=== PATIENT | female | born 1970 | race Caucasian/White ===

== ENCOUNTER 2017-11-04 11:25 | Inpatient (IN) ==
[2017-11-04] MEDS ORDERED: Metoclopramide 10 MG/2 ML VIAL IVP ONE (11:45)
[2017-11-04] MEDS ORDERED: Scopolamine Patch 1.5 MG PATCH.TD72 TD ONE (11:45)
[2017-11-04] MEDS ORDERED: Famotidine 20 MG/2 ML VIAL IVP ONE (11:45)
[2017-11-04] MEDS ORDERED: Acetaminophen IV 1,000 MG/100 ML INFUS..BTL IVPB ONE (11:46)
[2017-11-04] MEDS ORDERED: Pregabalin 75 MG CAPSULE PO ONE (11:46)
--- NOTE | 2017-11-04 11:49 | Anesthesia Evaluation PreOp ---
Date of Encounter: 11/04/17 Time of Encounter: 11:47 - Past History Planned Operation: GUIDO/BSO re: fibroids, adenomyosis/Endometriosis Cardiac History: CHF (Initial CHF 10/2006 re: PeriPartum Non-ischemic CM, recurrent CHF 2009, 2013. NO additional episodes since consistently maintained on medications starting in 2013), HTN (maintained on Lisinopril, CArvedilol, Spironolactone), Other (ECHO 10/29/2017 - LVEF 55%) Pulmonary History: Smoker (<1ppd x 30yrs) [employer] History: Denies Any Significant HX Other Medical History: Denies Any Significant HX Anesthesia History: No Prior Anesthetic Complications, Past Anesthesia ( Herniarrhaphy, Ines, Tubal 1997, LHC 12/2013 [no stents]) : No Test: Negative Alcohol Use: occasionally Medications and Allergies Lisinopril [Zestril] 20 mg PO DAILY 02/13/16 [History] Spironolactone [Aldactone] 25 mg PO DAILY 02/13/16 [History] Carvedilol [Carvedilol] 12.5 mg PO BID 11/04/17 [History] Norethindrone Acetate 5 mg PO DAILY 11/04/17 [History] 3 Allergy/AdvReac Type Severity Reaction Status Date / Time No Known Allergies Allergy Verified 11/04/17 11:48 - Meds/Allergy Pre-op Review Medications Reviewed: Yes Allergies Reviewed: Yes Beta Blockers on Current Med List: Yes (CArvedilol) If Beta Blockers taken, Date/Time (Last Dose taken): 11/05/2107 @ 0830 Anesthesia Results - Labs Laboratory Tests 10/30/17 10/30/17 10/30/17 11:40 11:40 11:40 WBC 10.6 Hgb 12.6 Hct 39.7 Plt Count 269 Potassium 3.7 Creatinine 0.72 Est GFR (Non-Af Amer) > 60 Serum , Qual Negative - Imaging Additional studies: ECHO 10/29/2017 EV/EV echocardiogram Impressions: LVEF 55%. Mildly dilated left ventricle. Mild left ventricular diastolic dysfunction. Normal right ventricular structure and function. No evidence of pulmonary hypertension. No significant valvular dysfunction. Left Ventricular Wall Motion: Rest Echo Findings All wall segments showed normal motion. Anesthesia Exam O2 Sat Height 1.65 m Height 1.65 m Weight 85.275 kg Weight 85.275 kg O2 Sat by Pulse Oximetry 96 Vital Signs Temp Pulse Resp BP Pulse Ox 98.3 F 56 18 116/53 96 11/04/17 11:46 11/04/17 11:46 11/04/17 11:46 11/04/17 11:46 11/04/17 11:46 Height: 5'5" Weight: 199# BMI = 31 NPO (# of Hours): MNOc - HEENT Pupil (Motor): Pupils equal, EOMI Mallampati: II Teeth: Missing, Poor dentition Denture Type: Upper: Partial Oral Opening: Greater than 3 - [employer] LOC: Oriented [employer] Motor: Normal RUE, Normal LUE, Normal RLE, Normal LLE, Normal Face [employer] Sensory: Normal: RUE, LUE, RLE, LLE, Face - Cardiac Rhythm: Regular Murmur: None - Pulmonary Breath Sounds: bilateral Clear Respiratory Effort: Symmetrical Anesthesia Assess/Plan ASA Score: 3 (Non-ischemic CM, Smoker, Obesity,) Modified Dwayne Scale for Level of Consciousness: Cooperative, oriented, and tranquil Anesthetic Plan: General, Regional Monitoring Plan: Standard Monitors Recovery Plan: PACU Anes Supervising Prov Stmt: Pt seen/evaluated, R*B discussed, questions answered and consent obtained. Noy Castillo MD
[2017-11-04] MEDS ORDERED: *HR* LORazepam 1 MG TABLET PO PRN (12:17)
[2017-11-04] MEDS ORDERED: Albuterol 2.5 MG/3 ML NEBULIZER IH ONE (12:30)
[2017-11-04] MEDS ORDERED: CeFAZolin Syr 2,000MG/20 ML 2,000 MG/20 ML SYRINGE IVPB ONE (12:30)
[2017-11-04] MEDS ORDERED: Lidocaine -MPF 2% 2 ML VIAL ONE ×2 (12:32→13:29)
[2017-11-04] MEDS ORDERED: *HR* FentaNYL (PF) 100 MCG/2 ML VIAL ONE (12:32)
[2017-11-04] MEDS ORDERED: *HR* Rocuronium Bromide 50 MG/5 ML VIAL ONE (12:32)
[2017-11-04] MEDS ORDERED: *HR* Propofol 200 MG/20 ML VIAL IVP ONE (12:32)
[2017-11-04] MEDS ORDERED: *HR* Midazolam HCl 2 MG/2 ML VIAL ONE (12:32)
[2017-11-04] MEDS ORDERED: Bupivacaine/EPI 1:200k 0.25%PF 10 ML VIAL INFILT ONE (12:51)
[2017-11-04] MEDS ORDERED: *HR* Belladonna Alkaloids/Opium 30 MG RECTAL SUPPOSITORY RC ONE (12:51)
[2017-11-04] MEDS ORDERED: Bupivacaine/PF 0.75% in Dex 2 ML AMPUL INFILT ONE (12:55)
[2017-11-04] MEDS ORDERED: Morphine Sulfate/PF 5mg/10mL Vial ONE (12:55)
--- NOTE | 2017-11-04 12:56 | History & Physical Report ---
Date of Encounter: 11/04/17 Time of Encounter: 12:55 24 Hour HP Update - Instructions Instructions: If the History and Physical is less than 30 days old and was completed prior to A.M. admission and or procedure and has NOT been updated on calendar day of procedure please complete this update prior to performing procedure. - Update Patient reports changes in Medical Condition: No Changes in examination, assessment, or condition: No Changes in Medication: No Preop tests/diagnostics Reviewed: Yes Surgery Remains Indicated: Yes Consent for Planned Operative Procedure(s) Verified: Yes - Pre-Operative Checklist Preoperative Checklist Indicated: Yes Prophylactic Antibiotic Ordered: Yes Home Medications Include Beta Gita: Yes Beta Gita Taken Today (Day of Surgery): Yes Beta Gita Taken Yesterday (Day Prior to Surgery): Yes Is VTE Prophylaxis Indicated?: Yes - Attending Attestation ashok palomares md facog
[2017-11-04] MEDS ORDERED: EPHEDrine 50 MG/ML VIAL ONE (13:36)
[2017-11-04] MEDS ORDERED: Ondansetron 4 MG/2 ML VIAL ONE (13:51)
[2017-11-04] MEDS ORDERED: Neostigmine Methylsulfate 3 MG/3 ML SYRINGE ONE (13:51)
[2017-11-04] MEDS ORDERED: Dexamethasone 4 MG/ML VIAL ONE (13:51)
[2017-11-04] MEDS ORDERED: Ketorolac 30 MG/ML VIAL ONE (13:51)
[2017-11-04] MEDS ORDERED: Ondansetron 4 MG/2 ML VIAL IVP ONE (13:55)
[2017-11-04] MEDS ORDERED: *HR* Promethazine 25 MG/ML VIAL IVP PRN (13:55)
[2017-11-04] MEDS ORDERED: *HR* Labetalol 20 MG/4 ML SYRINGE IVP PRN (13:55)
[2017-11-04] MEDS ORDERED: MORPHINE SUL Oral CONC 10 MG/0.5 ML ORAL.SYG SL PRN (13:55)
--- NOTE | 2017-11-04 14:49 | OB/GYN Procedure Note ---
Hysterectomy - Diagnosis Date of procedure: 11/04/17 Hysterectomy pre-op: abnormal uterine bleeding, symptomatic leiomyomata Post-op diagnosis: same - Procedure Hysterectomy procedure: total abdominal hysterectomy, left salpingo oophorectomy , right salpingo oophorectomy Surgeon: Manjinder Corbin Was there an contact center assistant present: Yes [facility] Advocate: Sandra Garcia Anesthesia provider: Rashida Michaels Anesthesia Type: General (Intrathecal) Estimated blood loss (cc): 60 Complications: none Fluids: crystalloid Urine output (cc): 75 Specimens: right ovary, uterus, cervix, left ovary, right fallopian tube, left fallopian tube Findings: Uterus was enlarged and boggy consistent with adenomyosis. Fallopian tubes were consistent with previous tubal sterilization. Ovaries appeared be normal. There are dense adhesions in the upper abdomen where she had her hernia repair previously. Disposition: PACU Narrative: Patient taken to the operating room. After satisfactory anesthesia was achieved , patient was placed in supine position, Maynard catheter inserted, and prepped and draped in usual manner. After appropriate timeout, the abdomen was entered through standard Maylard incision. The Trell retractor was placed. The bowels packed superiorly with operative field. Uterus grasped on either side with [place] clamps. Infundibulopelvic ligaments on either side were coagulated and cut. This was carried across to the round ligament which was coagulated and cut. Bladder flap was created anteriorly. Uterine arteries were identified , coagulated, and cut. Cardinal ligament pedicles were coagulated and cut. Uterosacral ligaments were clamped cut and suture ligated with 0 Monocryl. The vagina was entered. Cervix uterus and attached adnexa were then removed and sent to pathology for analysis. Cuff was closed with 0 Monocryl left to right right left. After assurance of hemostasis, peritoneum was reapproximated over the cuff with a 2-0 Vicryl. The retractor and packs were removed. The abdomen was closed standard fashion using 0 Vicryl in the fascia and 3-0 Monocryl in the skin. Floyd dressing was applied. Patient did well was taken to recovery in satisfactory condition. Counts were correct.
[2017-11-04] MEDS: *HR* HYDROmorphone (PF) 1 MG/ML SYRINGE IVP PRN ×2 (15:25→15:35)
--- NOTE | 2017-11-04 16:06 | Anesthesia Evaluation Post Op ---
Date of Encounter: 11/04/17 Time of Encounter: 16:06 - Vital Signs Vital Signs: Vital Signs/O2 Sat, Most Current Temp Pulse Resp BP Pulse Ox 98.1 F 45 16 98/56 96 11/04/17 15:43 11/04/17 15:53 11/04/17 15:53 11/04/17 15:53 11/04/17 15:53 - Lungs Lungs: Clear Ascult./Percussion - Airway Airway: Non-obstructed - Cardiovascular Regular Rate - Mental Status Mental Status: Alert & Oriented, Answers Appropriately - Pain Pain Scale: 3 Pain Scale used: Numeric (1 - 10) - Nausea Vomiting Nausea Vomiting: Not Present - Hydration Hydration: NPO, Maynard catheter - Discharge PostOp Status: Transfer Patient to floor
[2017-11-04] MEDS ORDERED: Naloxone 0.4 MG/ML INJ IVP PRN (17:21)
[2017-11-04] MEDS ORDERED: Sennosides 8.6 MG TABLET PO PRN (17:21)
[2017-11-04] MEDS ORDERED: Ondansetron 4 MG/2 ML VIAL IVP PRN (17:21)
[2017-11-04] MEDS ORDERED: *HR* HYDROcodone/Acet 5/325 mg TABLET PO PRN (17:21)
[2017-11-04] MEDS: *HR* OxyCODONE/APAP 5/325 TABLET PO PRN ×2 (19:49→23:44)
[2017-11-04] MEDS: Ringers Solution, Lactated 1,000 ML ONE (23:08)
[2017-11-05] MEDS: *HR* OxyCODONE/APAP 5/325 TABLET PO PRN ×2 (03:48→09:40)
[2017-11-05 04:50] LABS: Basophils % 0.1 %; Hematocrit 33.4 % (35.3-44.9); Immature Granulocytes % 0.5 % (0-4); Mean Corpuscular HGB Conc 31.4 g/dL (31.6-35.5); Mean Corpuscular Hemoglobin 29.1 pg (28.0-33.3); Mean Corpuscular Volume 92.5 fL (83.0-100.0); Mean Platelet Volume 11.2 fL (9.4-12.4); Monocytes # 0.8 K/mcL (0.0-1.3); Monocytes % 5.4 %; Neutrophils # 12.3 K/mcL (1.6-8.9); Platelet Count 197 K/mcL (140-400); Red Blood Count 3.61 M/mcL (3.82-4.97); Red Cell Distribution Width 13.8 % (11.5-14.5)
[2017-11-05 04:56] LABS: Hemoglobin 10.5 g/dL (11.5-15.4)
[2017-11-05 05:04] LABS: eGFR For African Americans > 60 (> 60); eGFR For Non-African Americans > 60 (> 60)
[2017-11-05] MEDS ORDERED: Ringers Solution, Lactated 1,000 ML ONE (06:28)
[2017-11-05] MEDS: Ringers Solution, Lactated 1,000 ML ONE (06:29)
--- NOTE | 2017-11-05 08:14 | Discharge Summary ---
Date of Encounter: 11/05/17 Time of Encounter: 08:14 - Discharge Diagnosis (1) Uterus, adenomyosis Priority: Primary Status: Resolved (2) Post-op pain Priority: Secondary Status: Chronic - Discharge Medications Prescriptions: OxyCODONE/APAP 5/325 [Percocet 5/325 MG] 1 each PO Q4HR PRN 7 Days #20 tablet PRN Reason: Severe Pain (7-10) Home Medications: Lisinopril [Zestril] 20 mg PO DAILY 02/13/16 [History] Spironolactone [Aldactone] 25 mg PO DAILY 02/13/16 [History] Carvedilol [Carvedilol] 12.5 mg PO BID 11/04/17 [History] Norethindrone Acetate 5 mg PO DAILY 11/04/17 [History] OxyCODONE/APAP 5/325 [Percocet 5/325 MG] 1 each PO Q4HR PRN 7 Days #20 tablet [Rx] Allergies/Adverse Reactions: 3 Allergy/AdvReac Type Severity Reaction Status Date / Time No Known Allergies Allergy Verified 11/04/17 11:48 Data Procedures and tests throughout hospitalization: Laboratory Tests 11/05/17 11/05/17 04:26 04:26 WBC 14.1 H RBC 3.61 L Hgb 10.5 L D Hct 33.4 L MCV 92.5 MCH 29.1 MCHC 31.4 L RDW 13.8 Plt Count 197 MPV 11.2 Immature Gran % 0.5 Seg Neutrophils % 87.0 Lymphocytes % 7.0 Monocytes % 5.4 Eosinophils % 0.0 Basophils % 0.1 Neutrophils # 12.3 H Lymphocytes # 1.0 Monocytes # 0.8 Eosinophils # 0.0 Basophils # 0.0 Creatinine 0.76 Est GFR ( Amer) > 60 Est GFR (Non-Af Amer) > 60 Labs on day of discharge: Labs from last 24 hours 11/05/17 11/05/17 04:26 04:26 WBC 14.1 H RBC 3.61 L Hgb 10.5 L D Hct 33.4 L MCV 92.5 MCH 29.1 MCHC 31.4 L RDW 13.8 Plt Count 197 MPV 11.2 Immature Gran % 0.5 Seg Neutrophils % 87.0 Lymphocytes % 7.0 Monocytes % 5.4 Eosinophils % 0.0 Basophils % 0.1 Neutrophils # 12.3 H Lymphocytes # 1.0 Monocytes # 0.8 Eosinophils # 0.0 Basophils # 0.0 Creatinine 0.76 Est GFR ( Amer) > 60 Est GFR (Non-Af Amer) > 60 Date of admission: 11/04/17 17:26 Primary care physician: Antonio Pappas DO - Patient Status Disposition: Home, Self-Care Condition: Good Functional capacity at discharge: independent ambulation Overall status at discharge: patient is progressing back to baseline - Discharge Instructions Follow Up With: Antonio Pappas DO [Primary Care Provider] - - Diet and Activity Activity: increase activity as tolerated Diet: advance to your usual diet Hospital Course [employer] Time Attestation: Total time spent providing and/or coordinating discharge services: Exam - Constitutional Vitals: Temp Pulse Resp BP Pulse Ox 98.3 F 57 14 116/72 96 11/05/17 03:35 11/05/17 03:35 11/05/17 03:35 11/05/17 03:35 11/05/17 03:35 General appearance IM: A&O X 3 - Respiratory Respiratory exam: Present: CTAB - Cardiovascular Cardiovascular exam IM: Present: RRR - GI/Abdominal GI/Abdominal exam IM: normal bowel sounds, soft Incision: normal, intact - Extremities Exam Extremities exam IM: Present: full ROM - Neurological Exam Neurological exam: CN II-XII intact - VTE Documentation of Mechanical Device: Intermittent pneumatic compression device - Attending Attestation ashok palomares md facog
[2017-11-05] MEDS ORDERED: Spironolactone 25 MG TABLET PO SCH (09:00)
[2017-11-05] MEDS ORDERED: Lisinopril 20 MG TABLET PO SCH (09:00)
[2017-11-05 10:30] VITALS: BP 131/74
== END 2017-11-05 10:15 | disposition home or self-care (01) | DRG 742 ==
LOC: SAMDAY 11:25 → 1NENUOBS 17:26
PROVIDERS: ADMIT Obstetrics & Gynecology; ATTEND Obstetrics & Gynecology